=== PATIENT | female | born 1965 | race Caucasian/White ===

== ENCOUNTER 2018-12-01 12:11 | Day surgery (SDC) | payer BC, MEDICAID ==
[~2018-12-01] VITALS: Ht 157.5 cm; Wt 57.1 kg
[~2018-12-01 12:11] MED LIST: BUPIVACAINE/PF-EPI 0.5% 1:200K ONE; HEPARIN 1,000 UNITS/ML, 10ML ONE
[2018-12-01 12:34] VITALS: BP 129/75
[2018-12-01] MEDS ORDERED: SODIUM CHLORIDE 0.9% 1,000 ML IV SCH (12:35)
[2018-12-01] MEDS ORDERED: FURO80TA3 PO (13:00)
[2018-12-01] MEDS ORDERED: VITAMIN C (13:00)
[2018-12-01] MEDS ORDERED: PLEASE ENTER HEIGHT AND WEIGHT MC SCH (13:00)
[2018-12-01] MEDS ORDERED: IRON (13:00)
[2018-12-01] MEDS ORDERED: ATORVASTATIN (13:00)
[2018-12-01] MEDS ORDERED: INSU100C5 SQ-INSULIN (13:00)
[2018-12-01] MEDS ORDERED: LABE300T2 PO (13:00)
[2018-12-01] MEDS ORDERED: INSU100V8 SQ (13:00)
[2018-12-01] MEDS ORDERED: FENTANYL PF 100 MCG/2ML ONE (13:51)
[2018-12-01] MEDS ORDERED: MIDAZOLAM 1 MG/ML, 2ML ONE (13:51)
[2018-12-01] MEDS ORDERED: ALBUTEROL/IPRATROPIUM 2.5MG/0.5MG, 3 ML NPPB PRN (14:00)
[2018-12-01] MEDS ORDERED: FENTANYL PF 100 MCG/2ML IV PRN (14:00)
[2018-12-01] MEDS ORDERED: hydrALAzine 20 MG/ML, 1ML IV PRN (14:00)
[2018-12-01] MEDS ORDERED: MEPERIDINE/PF 25MG/0.5ML IVPush PRN (14:00)
[2018-12-01] MEDS ORDERED: OXYcodone 5 MG/5 ML ORAL.SOL UDC PO PRN (14:00)
[2018-12-01] MEDS ORDERED: ONDANSETRON 2MG/ML, 2ML IV PRN (14:00)
[2018-12-01] MEDS ORDERED: METOPROLOL 1 MG/ML, 5ML IV PRN (14:00)
[2018-12-01] MEDS ORDERED: LABETALOL 5MG/ML, 20ML IV PRN (14:00)
[2018-12-01] MEDS ORDERED: PROMETHAZINE 25 MG/ML, 1ML IV PRN (14:00)
[2018-12-01] MEDS ORDERED: HYDROmorphone 2 MG/ML, 1ML IVPush PRN (14:00)
[2018-12-01] MEDS ORDERED: ACETAMINOPHEN 325 MG TABLET PO PRN (14:00)
[2018-12-01] MEDS ORDERED: SCOPOLAMINE PATCH, 1.5MG PATCH.TD72 TD PRN (14:00)
[2018-12-01] MEDS ORDERED: MIDAZOLAM 1 MG/ML, 2ML IV PRN (14:00)
[2018-12-01] MEDS ORDERED: LIDOCAINE 2%, 6 ML JEL.PF.APP MM ONE (14:17)
[2018-12-01] MEDS ORDERED: BUPIVACAINE/PF-EPI 0.5% 1:200K INFIL ONE (14:29)
[2018-12-01] MEDS ORDERED: SUCCINYLCHOLINE 20 MG/ML, 10ML ONE (14:39)
[2018-12-01] MEDS ORDERED: GLYCOPYRROLATE 0.2MG/1ML, 5ML ONE (14:39)
[2018-12-01] MEDS ORDERED: ONDANSETRON 2MG/ML, 2ML ONE (14:39)
[2018-12-01] MEDS ORDERED: NEOSTIGMINE 1 MG/ML, 10ML ONE (14:39)
[2018-12-01] MEDS ORDERED: ROCURONIUM 10MG/ML,5ML ONE (14:39)
[2018-12-01] MEDS ORDERED: PROPOFOL 10 MG/ML, 20ML ONE (14:39)
[2018-12-01] MEDS ORDERED: CEFAZOLIN 1,000 MG ONE (14:39)
[2018-12-01] MEDS ORDERED: DEXAMETHASONE 4 MG/ML, 1ML ONE (14:39)
[2018-12-01] MEDS ORDERED: hydrALAzine 20 MG/ML, 1ML ONE (15:15)
== END 2018-12-01 17:10 | disposition home or self-care (01) ==
LOC: OUT 12:11
PROVIDERS: ATTEND Surgery Vascular Surgery
DX: I12.0 Hypertensive chronic kidney disease with stage 5 chronic kidney disease or end stage renal disease (principal); E11.22 Type 2 diabetes mellitus with diabetic chronic kidney disease; N18.6 End stage renal disease; E78.5 Hyperlipidemia, unspecified; Z79.84 Long term (current) use of oral hypoglycemic drugs; Z98.890 Other specified postprocedural states; Z79.899 Other long term (current) drug therapy
CPT/HCPCS: 49324; 80047; 82962; J0330; J0360; J0690; J1100; J1644; J2250; J2405; J2704; J2710; J3010; J3490; J7030